=== PATIENT | female | born 1980 | race Caucasian/White ===

== ENCOUNTER 2018-02-27 19:30 | Day surgery (SDC) | payer OTHER ==
--- NOTE | 2018-02-27 19:37 | PDOC ---
Rapid Medical Evaluation Time Seen by Provider: 02/27/18 19:34 Medical Evaluation: Allergies Allergy/AdvReac Type Severity Reaction Status Date / Time No Known Allergies Allergy Verified 08/14/14 16:07 02/27/18 19:34 I have performed a brief in-person evaluation of this patient. The patient presents with a chief complaint of: abd pain since this afternoon, + nausea, no vomiting Pertinent physical exam findings:+RUQ tenderness I have ordered the following:labs, UA The patient will proceed to the ED for further evaluation. 02/27/18 19:36 Discharge Disposition - Diagnosis Abdominal pain Qualifiers: Abdominal location: upper abdomen, unspecified Qualified Code(s): R10.10 - Upper abdominal pain, unspecified - Referrals Referrals: Tonya Zeng MD [Primary Care Provider] - - Patient Instructions - Post Discharge Activity
[2018-02-27 19:44] VITALS: BMI 31.9
[2018-02-27] MEDS ORDERED: SODIUM CHLORIDE 1,000 ML IV STA (21:40)
[2018-02-27] MEDS ORDERED: ONDANSETRON *ODT* 4 MG TABLET SL ONE (21:46)
[2018-02-27] MEDS: ONDANSETRON 4 MG/2 ML VIAL IVPUSH STA ×2 (21:46→22:20)
[2018-02-27] MEDS ORDERED: ONDANSETRON 8 MG TABLET (FP) PO ONE (21:48)
[2018-02-27 22:21] LABS: HEMATOCRIT 37.6 % (32.4-45.2); HEMOGLOBIN 12.7 GM/dL (10.7-15.3); MCHC 33.8 g/dl (32.0-36.0); MEAN CELL VOLUME 91.9 fl (80-96); PLATELET COUNT 281 K/MM3 (134-434); RBC 4.09 M/mm3 (3.60-5.2); WHITE BLOOD COUNT 8.4 K/mm3 (4.0-10.0)
[2018-02-27 22:37] LABS: URINE APPEARANCE CLEAR; URINE BILIRUBIN NEGATIVE (<2.0 mg/dL); URINE COLOR YELLOW; URINE GLUCOSE (UA) NEGATIVE (NEGATIVE); URINE KETONE NEGATIVE (NEGATIVE); URINE LEUK ESTERASE NEGATIVE (NEGATIVE); URINE NITRITE NEGATIVE (NEGATIVE); URINE PROTEIN NEGATIVE (NEGATIVE); URINE UROBILINOGEN 4.0 E.U/dl mg/dL (0.2-1.0)
--- NOTE | 2018-02-27 23:46 | PDOC ---
History of Present Illness - General History Source: Patient Exam Limitations: No Limitations - History of Present Illness Initial Comments: 02/27/18 23:47 The patient is a 37 year old female, with no significant past medical history, who presents to the emergency department with abdominal pain, nausea, and vomiting today. She states she developed lower abdominal pain around 5PM which felt like gas and traveled upwards to her epigastric and right upper abdominal regions. She states she developed some nausea and reports one episode of nonbloody emesis while in the ED waiting room. The patient denies chest pain, shortness of breath, headache and dizziness. The patient denies fever, chills, nausea, vomit, diarrhea and constipation. The patient denies dysuria, frequency, urgency and hematuria. Allergies: NKDA Past surgical history: gastric sleeve (5 years ago @ [facility]), x2 (10 & 7 years ago) Social history: denies toxic habits PCP - Dr. Zeng <Kesha Ribeiro - Last Filed: 02/27/18 23:47> <Viviane Corrigan - Last Filed: 02/28/18 02:38> - General Chief Complaint: Pain Stated Complaint: ABD PAIN Time Seen by Provider: 02/27/18 19:34 Past History <Kesha Ribeiro - Last Filed: 02/27/18 23:47> - Past Medical History COPD: No DVT: No Other medical history: GERD - Surgical History GI Surgery: Yes (GASTRIC SLEEVE) - Immunization History Immunization Up to Date: Yes - Suicide/Smoking/Psychosocial Hx Smoking History: Never smoked Hx Alcohol Use: No Drug/Substance Use Hx: No Substance Use Type: None <Viviane Corrigan - Last Filed: 02/28/18 02:38> - Past Medical History Allergies/Adverse Reactions: Allergies Allergy/AdvReac Type Severity Reaction Status Date / Time No Known Allergies Allergy Verified 02/27/18 19:36 Home Medications: Ambulatory Orders Albuterol Sulfate Inhaler - [Ventolin HFA Inhaler -] 1 - 2 inh PO Q4H #1 inhaler 08/14/14 Ondansetron [Zofran Odt -] 4 mg SL TID PRN #21 od.tablet 02/28/18 Review of Systems - Review of Systems Able to Perform ROS?: Yes Comments:: 02/27/18 23:47 CONSTITUTIONAL: Absent: fever, chills, fatigue EYES: Absent: visual changes ENT: Absent: ear pain, sore throat CARDIOVASCULAR: Absent: chest pain, palpitations RESPIRATORY: Absent: cough, SOB GI: (+) abdominal pain, nausea, vomiting, Absent: constipation, diarrhea GENITOURINARY: Absent: dysuria, frequency, hematuria MUSCULOSKELETAL: Absent: back pain, arthralgia, myalgia SKIN: Absent: rash NEURO: Absent: headache <Kesha Ribeiro - Last Filed: 02/27/18 23:47> *Physical Exam - Vital Signs Last Vital Signs Temp Pulse Resp BP Pulse Ox 98.3 F 94 H 16 135/70 100 02/27/18 19:37 02/27/18 19:37 02/27/18 19:37 02/27/18 19:37 02/27/18 19:37 - Physical Exam Comments: 02/27/18 23:47 GENERAL: Well-appearing, well-nourished. No apparent distress. HEENT: Normocephalic, atraumatic. PERRL, EOM intact. CARDIOVASCULAR: Normal S1, S2. Regular rate and rhythm. PULMONARY: Clear to auscultation bilaterally. ABDOMEN: Soft, non-distended, non-tender. EXTREMITIES: Normal ROM in all four extremities. No gross deformities. SKIN: Warm, dry. No rash NEUROLOGICAL: No focal neurological deficits. <Kesha Ribeiro - Last Filed: 02/27/18 23:47> - Vital Signs Last Vital Signs Temp Pulse Resp BP Pulse Ox 98.3 F 94 H 16 135/70 100 02/27/18 19:37 02/27/18 19:37 02/27/18 19:37 02/27/18 19:37 02/27/18 19:37 <Viviane Corrigan - Last Filed: 02/28/18 02:38> ED Treatment Course - LABORATORY CBC & Chemistry Diagram: 02/27/18 22:05 02/27/18 22:05 - ADDITIONAL ORDERS Additional order review: Laboratory Results 02/27/18 02/27/18 02/27/18 22:21 22:21 22:05 Sodium Potassium Chloride Carbon Dioxide Anion Gap BUN Creatinine Creat Clearance w eGFR Random Glucose Calcium Total Bilirubin AST ALT Alkaline Phosphatase Total Protein Albumin Lipase Serum , Qual Cancelled Urine Color Yellow Urine Appearance Clear Urine pH 7.0 Ur Specific [place] 1.014 Urine Protein Negative Urine Glucose (UA) Negative Urine Ketones Negative Urine Blood Negative Urine Nitrite Negative Urine Bilirubin Negative Urine Urobilinogen 4.0 e.u/dl H Ur Leukocyte Esterase Negative Urine HCG, Qual Negative 02/27/18 02/27/18 22:05 22:05 Sodium Cancelled Potassium Cancelled Chloride Cancelled Carbon Dioxide Cancelled Anion Gap Cancelled BUN Cancelled Creatinine Cancelled Creat Clearance w eGFR Cancelled Random Glucose Cancelled Calcium Cancelled Total Bilirubin Cancelled AST Cancelled ALT Cancelled Alkaline Phosphatase Cancelled Total Protein Cancelled Albumin Cancelled Lipase Cancelled Serum , Qual Urine Color Urine Appearance Urine pH Ur Specific [place] Urine Protein Urine Glucose (UA) Urine Ketones Urine Blood Urine Nitrite Urine Bilirubin Urine Urobilinogen Ur Leukocyte Esterase Urine HCG, Qual 02/27/18 22:05 RBC 4.09 MCV 91.9 MCHC 33.8 RDW 13.0 MPV 8.0 - Medications Given in the ED: ED Medications Discontinued Medications Generic Name Dose Route Start Last Admin Trade Name Freq PRN Reason Stop Dose Admin Sodium Chloride 1,000 mls @ 1,000 mls/hr 02/27/18 21:40 02/27/18 22:19 Normal Saline - IV 02/27/18 22:39 1,000 mls/hr ASDIR STA Administration Ondansetron HCl 4 mg 02/27/18 21:40 02/27/18 22:20 Zofran Injection IVPUSH 02/27/18 21:41 Not Given ONCE STA Ondansetron HCl 8 mg 02/27/18 21:46 02/27/18 22:20 Zofran Odt - SL 02/27/18 21:47 8 mg ONCE ONE Administration <Kesha Ribeiro - Last Filed: 02/27/18 23:47> - LABORATORY CBC & Chemistry Diagram: 02/27/18 22:05 02/27/18 23:45 - ADDITIONAL ORDERS Additional order review: Laboratory Results 02/27/18 02/27/18 02/27/18 22:21 22:21 22:05 Sodium Potassium Chloride Carbon Dioxide Anion Gap BUN Creatinine Creat Clearance w eGFR Random Glucose Calcium Total Bilirubin AST ALT Alkaline Phosphatase Total Protein Albumin Lipase Serum , Qual Cancelled Urine Color Yellow Urine Appearance Clear Urine pH 7.0 Ur Specific [place] 1.014 Urine Protein Negative Urine Glucose (UA) Negative Urine Ketones Negative Urine Blood Negative Urine Nitrite Negative Urine Bilirubin Negative Urine Urobilinogen 4.0 e.u/dl H Ur Leukocyte Esterase Negative Urine HCG, Qual Negative 02/27/18 02/27/18 22:05 22:05 Sodium Cancelled Potassium Cancelled Chloride Cancelled Carbon Dioxide Cancelled Anion Gap Cancelled BUN Cancelled Creatinine Cancelled Creat Clearance w eGFR Cancelled Random Glucose Cancelled Calcium Cancelled Total Bilirubin Cancelled AST Cancelled ALT Cancelled Alkaline Phosphatase Cancelled Total Protein Cancelled Albumin Cancelled Lipase Cancelled Serum , Qual Urine Color Urine Appearance Urine pH Ur Specific [place] Urine Protein Urine Glucose (UA) Urine Ketones Urine Blood Urine Nitrite Urine Bilirubin Urine Urobilinogen Ur Leukocyte Esterase Urine HCG, Qual 02/27/18 22:05 RBC 4.09 MCV 91.9 MCHC 33.8 RDW 13.0 MPV 8.0 - Medications Given in the ED: ED Medications Discontinued Medications Generic Name Dose Route Start Last Admin Trade Name Kel PRN Reason Stop Dose Admin Sodium Chloride 1,000 mls @ 1,000 mls/hr 02/27/18 21:40 02/27/18 22:19 Normal Saline - IV 02/27/18 22:39 1,000 mls/hr ASDIR STA Administration Ondansetron HCl 4 mg 02/27/18 21:40 02/27/18 22:20 Zofran Injection IVPUSH 02/27/18 21:41 Not Given ONCE STA Ondansetron HCl 8 mg 02/27/18 21:46 02/27/18 22:20 Zofran Odt - SL 02/27/18 21:47 8 mg ONCE ONE Administration <Viviane Corrigan - Last Filed: 02/28/18 02:38> Medical Decision Making - Medical Decision Making 02/28/18 01:24 pt dev epigastric pain since 5 pm today with some nausea no fever,no vomiting labs reviewed ,elevated ast,asl and abs US done 02/28/18 02:05 GB US shows gallstones and some GB wall thickening, ? chronic cholecystitis 02/28/18 02:30 Discussed w this pt the options of being admitted today for surgery but she would like to see a surgeon as an outpatient 02/28/18 02:37 I went to discharge this pt and she now wants to have her gallbladder removed <Viviane Corrigan - Last Filed: 02/28/18 02:38> *DC/Admit/Observation/Transfer - Attestations Scribe Attestion: 02/27/18 23:47 Documentation prepared by Kesha Ribeiro, acting as medical sales associate for Viviane Corrigan MD <Kesha Ribeiro - Last Filed: 02/27/18 23:47> <Viviane Corrigan - Last Filed: 02/28/18 02:38> Diagnosis at time of Disposition: Cholecystitis Abdominal pain Qualifiers: Abdominal location: upper abdomen, unspecified Qualified Code(s): R10.10 - Upper abdominal pain, unspecified - Discharge Dispostion Disposition: HOME Condition at time of disposition: Stable - Prescriptions Prescriptions: Ondansetron [Zofran Odt -] 4 mg SL TID PRN #21 od.tablet PRN Reason: Nausea And/Or Vomiting - Referrals Referrals: Tonya Zeng MD [Primary Care Provider] - Ted Castillo MD [Staff Physician] - Jarred Khan MD [Staff Physician] - Dorina Live MD [Staff Physician] - - Patient Instructions Printed Discharge Instructions: DI for Gallstones, DI for Cholecystitis Additional Instructions: please see your doctor this week or call one of the surgeons you have been referred to for further treatment of your gallbladder If you develop worsening symptoms such as fever,vomiting or worsening pain, return to the ER - Post Discharge Activity
[2018-02-28 00:44] LABS: ALBUMIN 3.4 g/dl (3.4-5.0); ALK PHOS 64 U/L (45-117); ANION GAP 6 MMOL/L (8-16); BILIRUBIN,TOTAL 0.7 mg/dL (0.2-1.0); BLOOD UREA NITROGEN 8 mg/dL (7-18); CALCIUM 8.5 mg/dL (8.5-10.1); CHLORIDE 109 mmol/L (98-107); CO2 28 mmol/L (21-32); CREATININE 0.5 mg/dL (0.55-1.02); GLUCOSE,RANDOM 112 mg/dL (74-106); POTASSIUM 4.2 mmol/L (3.5-5.1); SGOT/AST 167 U/L (15-37); SGPT/ALT 119 U/L (12-78); SODIUM 143 mmol/L (136-145); TOT PROT 6.7 g/dl (6.4-8.2)
--- NOTE | 2018-02-28 02:38 | PDOC ---
*Physical Exam - Vital Signs Last Vital Signs Temp Pulse Resp BP Pulse Ox 98.3 F 94 H 16 135/70 100 02/27/18 19:37 02/27/18 19:37 02/27/18 19:37 02/27/18 19:37 02/27/18 19:37 ED Treatment Course - LABORATORY CBC & Chemistry Diagram: 02/27/18 22:05 02/27/18 23:45 - ADDITIONAL ORDERS Additional order review: Laboratory Results 02/27/18 02/27/18 02/27/18 23:45 22:21 22:21 Sodium 143 Potassium 4.2 Chloride 109 H Carbon Dioxide 28 Anion Gap 6 L BUN 8 Creatinine 0.5 L Creat Clearance w eGFR > 60 Random Glucose 112 H Calcium 8.5 Total Bilirubin 0.7 AST 167 H ALT 119 H Alkaline Phosphatase 64 Total Protein 6.7 Albumin 3.4 Lipase Serum , Qual Urine Color Yellow Urine Appearance Clear Urine pH 7.0 Ur Specific [place] 1.014 Urine Protein Negative Urine Glucose (UA) Negative Urine Ketones Negative Urine Blood Negative Urine Nitrite Negative Urine Bilirubin Negative Urine Urobilinogen 4.0 e.u/dl H Ur Leukocyte Esterase Negative Urine HCG, Qual Negative 02/27/18 02/27/18 02/27/18 22:05 22:05 22:05 Sodium Cancelled Potassium Cancelled Chloride Cancelled Carbon Dioxide Cancelled Anion Gap Cancelled BUN Cancelled Creatinine Cancelled Creat Clearance w eGFR Cancelled Random Glucose Cancelled Calcium Cancelled Total Bilirubin Cancelled AST Cancelled ALT Cancelled Alkaline Phosphatase Cancelled Total Protein Cancelled Albumin Cancelled Lipase Cancelled Serum , Qual Cancelled Urine Color Urine Appearance Urine pH Ur Specific [place] Urine Protein Urine Glucose (UA) Urine Ketones Urine Blood Urine Nitrite Urine Bilirubin Urine Urobilinogen Ur Leukocyte Esterase Urine HCG, Qual 02/27/18 22:05 RBC 4.09 MCV 91.9 MCHC 33.8 RDW 13.0 MPV 8.0 - Medications Given in the ED: ED Medications Discontinued Medications Generic Name Dose Route Start Last Admin Trade Name Freq PRN Reason Stop Dose Admin Sodium Chloride 1,000 mls @ 1,000 mls/hr 02/27/18 21:40 02/27/18 22:19 Normal Saline - IV 02/27/18 22:39 1,000 mls/hr ASDIR STA Administration Ondansetron HCl 4 mg 02/27/18 21:40 02/27/18 22:20 Zofran Injection IVPUSH 02/27/18 21:41 Not Given ONCE STA Ondansetron HCl 8 mg 02/27/18 21:46 02/27/18 22:20 Zofran Odt - SL 02/27/18 21:47 8 mg ONCE ONE Administration Medical Decision Making - Medical Decision Making 02/28/18 02:36 The patient was signed out to me by Dr. Corrigan. The patient is a 37F with a PMH of gastric sleeve 10 years ago who presents with RUQ pain. U/S reveals mobile gallstones w/ thickened gallbladder wall w/o pericholecystic fluid. Pt has elevated AST and ALT. Will admit to Dr. Castillo. 02/28/18 07:09 I have d/w Dr. Castillo who wants additional labs. Previous lipase cancelled for unknown reasons, will reorder and will order T+S and coags. *DC/Admit/Observation/Transfer Diagnosis at time of Disposition: Cholecystitis Abdominal pain Qualifiers: Abdominal location: upper abdomen, unspecified Qualified Code(s): R10.10 - Upper abdominal pain, unspecified - Discharge Dispostion Condition at time of disposition: Guarded Decision to Admit order: Yes - Prescriptions - Referrals - Patient Instructions - Post Discharge Activity
[2018-02-28] MEDS ORDERED: SODIUM CHLORIDE 0.9% 1000 ML INFUS.BAG IV ONE (03:20)
[2018-02-28] MEDS ORDERED: ceFAZolin 2 GRAM PREMIX BAG IVPB ONE (03:30)
[2018-02-28] MEDS: LACTATED RINGERS SOLUTION 1,000 ML/1,000 ML INFUS.BAG IV SCH ×2 (06:03→12:48)
[2018-02-28] MEDS ORDERED: ceFAZolin SODIUM 1 GM VIAL ONE (06:12)
[2018-02-28] MEDS ORDERED: CEFOXITIN SODIUM 2 GM in DEXTROSE 5%-WATER - 100 ML IVPB ONE (09:42)
[2018-02-28] MEDS ORDERED: ACETAMINOPHEN 1000 MG/100 ML VIAL (NON FORMULARY) IVPB PRN (09:44)
[2018-02-28] MEDS ORDERED: ALBUTEROL SO4 8 GM HFA INHALER IH PRN (09:45)
[2018-02-28 10:45] LABS: BASO % 0.2 % (0-2.0); EOS % 0.4 % (0-4.5); HEMATOCRIT 32.7 % (32.4-45.2); HEMOGLOBIN 11.2 GM/dL (10.7-15.3); LYMPH % 29.6 % (8-40); MCH 31.4 pg (25.7-33.7); MCHC 34.1 g/dl (32.0-36.0); MEAN CELL VOLUME 91.9 fl (80-96); MEAN PLT VOLUME 7.9 fl (7.5-11.1); MONO % 6.9 % (3.8-10.2); NEUT % 62.9 % (42.8-82.8); PLATELET COUNT 263 K/MM3 (134-434); RBC 3.56 M/mm3 (3.60-5.2); RDW 13.2 % (11.6-15.6); WHITE BLOOD COUNT 3.9 K/mm3 (4.0-10.0)
[2018-02-28 10:55] LABS: ALBUMIN 3.1 g/dl (3.4-5.0); ANION GAP 3 MMOL/L (8-16); BLOOD UREA NITROGEN 6 mg/dL (7-18); CALCIUM 8.7 mg/dL (8.5-10.1); CHLORIDE 110 mmol/L (98-107); CO2 30 mmol/L (21-32); CREATININE 0.6 mg/dL (0.55-1.02); GLUCOSE,RANDOM 74 mg/dL (74-106); LIPASE 113 U/L (73-393); POTASSIUM 4.5 mmol/L (3.5-5.1); SGOT/AST 165 U/L (15-37); SODIUM 143 mmol/L (136-145); TOT PROT 6.3 g/dl (6.4-8.2)
[2018-02-28 10:56] LABS: INR 1.03 (0.83-1.09); PROTHROMBIN TIME (PATIENT) 11.6 SEC (9.7-13.0)
[2018-02-28 10:57] LABS: ALK PHOS 68 U/L (45-117); BILIRUBIN,TOTAL 0.4 mg/dL (0.2-1.0); SGPT/ALT 167 U/L (12-78)
--- NOTE | 2018-02-28 18:22 | HP ---
Admitting History and Physical - Primary Care Physician PCP: Tonya Zeng - Admission Chief Complaint: epigastric pain, n/v History of Present Illness: 37yo F with h/o GERD, morbid obesity s/p lap gastric sleeve 5 yrs ago with 50 lb weight loss, presented to ER with epigastric pain radiating up middle of chest and across neck starting ~5:30pm last night. She had grilled cheese and coffee for meal before that, and has had similar symptoms in past ( sometimes after greasy foods), but had never sought medical attention before for it. She had subjective chills and nausea associated, but did not vomit until she got to ER last night. In ER, she was afebrile, with normal wbc, normal labs except mildly elevated AST/ALT, and US showed contracted gallbladder with multiple stones, no signs cholecystitis. She was going to be discharged home, but decided she wanted to stay and have her gallbladder out. Labs repeated this am are stable, with no suggestion of CBD stones or pancreatitis. She is seen and examined in her bed with family member present. She states her pain is much better, and she is hungry. History Source: Patient Limitations to Obtaining History: No Limitations - Past Medical History Gastrointestinal: Yes: GERD Reproductive: No: Postmenopausal ...LMP Comment: 2 wks ago ...: No ...Para: 2 (7 & 10 yo) Additional Past Medical History: morbid obesity (lost ~50 lbs) - Past Surgical History Past Surgical History: Yes: Bariatric Surgery (laparoscopic gastric sleeve 5 yrs ago in [place]), (x2) - Smoking History Smoking history: Never smoked - Alcohol/Substance Use Hx Alcohol Use: Yes (rarely) History of Substance Use: reports: None - Social History ADL: Independent Home Medications - Allergies Allergies/Adverse Reactions: Allergies Allergy/AdvReac Type Severity Reaction Status Date / Time No Known Allergies Allergy Verified 02/27/18 19:36 - Home Medications Home Medications: Ambulatory Orders Omeprazole 20 mg PO DAILY PRN 02/28/18 Family Disease History - Family Disease History Family Disease History: Other: Sister (gallbladder problems) Review of Systems - Review of Systems Constitutional: reports: Chills (yesterday), Diaphoresis (last evening). denies : Fever Eyes: denies: Blurred Vision, Recent Change in Vision HENT: denies: Difficult Swallowing, Throat Pain Neck: denies: Swollen Glands, Tenderness Cardiovascular: denies: Chest Pain, Palpitations Respiratory: denies: Cough, SOB Gastrointestinal: reports: Abdominal Pain (with hpi), Constipation, Nausea ( with hpi), Vomiting (in ER only). denies: Diarrhea Genitourinary: denies: Burning, Dysuria Musculoskeletal: reports: Back Pain, Joint Pain (right knee). denies: Muscle Pain Integumentary: denies: Change in Color, Rash Neurological: reports: Dizziness, Headache Hematology/Lymphatic: reports: Easily Bruised. denies: Excessive Bleeding Psychiatric: reports: Anxiety (not for a long time). denies: Depression Physical Examination Vital Signs: Vital Signs Temperature 98.7 F 02/28/18 16:27 Pulse Rate 58 L 02/28/18 16:27 Respiratory Rate 20 02/28/18 16:27 Blood Pressure 114/68 02/28/18 16:27 O2 Sat by Pulse Oximetry (%) 100 02/27/18 22:30 Constitutional: Yes: Well Nourished, No Distress, Calm Eyes: Yes: Conjunctiva Clear, EOM Intact. No: Sclera Icterus HENT: Yes: Atraumatic, Normocephalic Neck: Yes: Supple, Trachea Midline Cardiovascular: Yes: Regular Rate and Rhythm. No: Murmur Respiratory: Yes: Regular, CTA Bilaterally Gastrointestinal: Yes: Normal Bowel Sounds, Soft, Other (well-healed laparoscopic and Pfannenstiel scars). No: Distention, Hernia, Tenderness (much better than last night per pt) ...Rectal Exam: Yes: Deferred Renal/: No: CVA Tenderness - Left, CVA Tenderness - Right Musculoskeletal: No: Joint Stiffness, Joint Swelling Extremities: No: Cool, Cyanosis Edema: No Peripheral Pulses WNL: Yes Integumentary: No: Jaundice, Rash Neurological: Yes: Alert, Oriented Psychiatric: Yes: Alert, Oriented Labs: CBC, BMP 02/28/18 10:10 02/28/18 10:10 CMP Sodium 143 mmol/L (136-145) 02/28/18 10:10 Potassium 4.5 mmol/L (3.5-5.1) 02/28/18 10:10 Chloride 110 mmol/L (98-107) H 02/28/18 10:10 Carbon Dioxide 30 mmol/L (21-32) 02/28/18 10:10 Anion Gap 3 MMOL/L (8-16) L 02/28/18 10:10 BUN 6 mg/dL (7-18) L 02/28/18 10:10 Creatinine 0.6 mg/dL (0.55-1.02) 02/28/18 10:10 Creat Clearance w eGFR > 60 (>60) 02/28/18 10:10 Random Glucose 74 mg/dL (74-106) 02/28/18 10:10 Calcium 8.7 mg/dL (8.5-10.1) 02/28/18 10:10 Total Bilirubin 0.4 mg/dL (0.2-1.0) 02/28/18 10:10 AST 165 U/L (15-37) H 02/28/18 10:10 ALT 167 U/L (12-78) H 02/28/18 10:10 Alkaline Phosphatase 68 U/L (45-117) 02/28/18 10:10 Total Protein 6.3 g/dl (6.4-8.2) L 02/28/18 10:10 Albumin 3.1 g/dl (3.4-5.0) L 02/28/18 10:10 Lipase 113 U/L (73-393) 02/28/18 10:10 Serum , Qual Negative 02/28/18 10:10 INR, PTT INR 1.03 (0.83-1.09) 02/28/18 10:10 Urine Test Results Urine Color Yellow 02/27/18 22:21 Urine Appearance Clear 02/27/18 22:21 Urine pH 7.0 (5.0-8.0) 02/27/18 22:21 Ur Specific [place] 1.014 (1.001-1.035) 02/27/18 22:21 Urine Protein Negative (NEGATIVE) 02/27/18 22:21 Urine Glucose (UA) Negative (NEGATIVE) 02/27/18 22:21 Urine Ketones Negative (NEGATIVE) 02/27/18 22:21 Urine Blood Negative (NEGATIVE) 02/27/18 22:21 Urine Nitrite Negative (NEGATIVE) 02/27/18 22:21 Urine Bilirubin Negative (<2.0 mg/dL) 02/27/18 22:21 Ur Leukocyte Esterase Negative (NEGATIVE) 02/27/18 22:21 AST/ALT both mildly elevated, stable bili, Alk Phos, lipase normal wbc normal Imaging - Results Ultrasound: Report Reviewed, Image Reviewed (images personally reviewed - multiple stones, gallbladder not distended, no ductal dilation, no fluid) Problem List - Problems (1) Calculus of gallbladder without cholecystitis without obstruction Assessment/Plan: biliary colic without cholecystitis admit 23H/satellite to surgery NPO/IVF until postop pain meds prn - nonnarcotics first line GI/DVT prophylaxis trended labs this am - stable Discussed with patient risks, benefits and alternatives of laparoscopic possible open cholecystectomy, including but not limited to bleeding, infection , injury to adjacent structures, bile leak or ductal injury, intraabdominal abscess, incisional hernia, need for further procedures; alternatives include delayed or no surgery - risks of this include recurrence of biliary colic, cholecystitis, cholangitis, pancreatitis, sepsis. Patient desires to proceed with operation - will take to OR for above. Informed consent signed for same. periop antibiotics anticipate resuming po postop Code(s): K80.20 - CALCULUS OF GALLBLADDER W/O CHOLECYSTITIS W/O OBSTRUCTION (2) Epigastric abdominal pain Assessment/Plan: resolved Code(s): R10.13 - EPIGASTRIC PAIN (3) Obesity due to excess calories without serious comorbidity Assessment/Plan: lost weight after bariatric surgery Code(s): E66.09 - OTHER OBESITY DUE TO EXCESS CALORIES Qualifiers: Obesity classification: adult class 1 (BMI 30 - 34.9) Body mass index: BMI 31.0-31.9 Qualified Code(s): E66.09 - Other obesity due to excess calories; Z68.31 - Body mass index (BMI) 31.0-31.9, adult (4) Nausea & vomiting Assessment/Plan: only in ER - resolved Code(s): R11.2 - NAUSEA WITH VOMITING, UNSPECIFIED Qualifiers: Vomiting type: unspecified Vomiting Intractability: non-intractable Qualified Code(s): R11.2 - Nausea with vomiting, unspecified
[2018-02-28] MEDS ORDERED: ONDANSETRON 4 MG/2 ML VIAL IVPUSH PRN ×2 (18:39→21:36)
[2018-02-28] MEDS ORDERED: BENZOIN/ALOE VERA/STORAX/TOLU 58 ML BOTTLE ONE (18:40)
[2018-02-28] MEDS ORDERED: MIDAZOLAM HCL 2 MG/2 ML SINGLE DOSE VIAL ONE (18:58)
[2018-02-28] MEDS ORDERED: PROPOFOL 20 ML ONE (19:06)
[2018-02-28] MEDS ORDERED: ROCURONIUM BROMIDE 50 MG/5 ML VIAL ONE (19:07)
[2018-02-28] MEDS ORDERED: SUCCINYLCHOLINE CHLORIDE 200 MG/10 ML VIAL ONE (19:07)
[2018-02-28] MEDS ORDERED: CEFOXITIN SODIUM 2 GM IVPB ONE (19:22)
[2018-02-28] MEDS ORDERED: cefOXitin SODIUM 1 GM VIAL (RESTRICTED TO ID) IVPB ONE (19:33)
[2018-02-28] MEDS ORDERED: DEXAMETHASONE SOD PHOSPHATE 4 MG/1 ML VIAL ONE (19:59)
[2018-02-28] MEDS ORDERED: BUPIVACAINE HCL/PF (5 MG/ML) 30 ML VIAL IJ ONE (20:30)
[2018-02-28] MEDS ORDERED: ACETAMINOPHEN 325 MG TABLET (FP) PO SCH (21:00)
[2018-02-28] MEDS ORDERED: LORazepam 2 MG/ML SDV VIAL IVPUSH PRN (21:10)
--- NOTE | 2018-02-28 21:11 | OP ---
Operative Note - Note: Operative Date: 02/28/18 Pre-Operative Diagnosis: symptomatic cholelithiasis Operation: laparoscopic cholecystectomy Findings: multiple stones in gb, mild edema at liver interface; critical view identified Post-Operative Diagnosis: Same as Pre-op Surgeon: Ted Castillo Auxiliary Operator: Jarred Khan Anesthesiologist/[employer] SALES ACCOUNT MANAGER: Glenys Nguyen Specimens Removed: gallbladder to pathology Estimated Blood Loss (mls): 5 Fluid Volume Replaced (mls): 1,200 (crystalloid) Operative Report Dictated: Yes
[2018-02-28] MEDS ORDERED: oxyCODONE HCL 5 MG TABLET PO PRN ×2 (21:15→21:36)
[2018-02-28] MEDS ORDERED: LORazepam 2 MG/ML SDV VIAL ONE (21:21)
[2018-02-28] MEDS ORDERED: ACETAMINOPHEN INJECTION 100 ML IVPB ONE (21:21)
[2018-02-28] MEDS ORDERED: PANTOPRAZOLE 20 MG TABLET (FP) PO PRN (21:24)
[2018-02-28] MEDS ORDERED: ACETAMINOPHEN 1000 MG/100 ML VIAL (NON FORMULARY) IVPB ONE (21:30)
[2018-02-28] MEDS ORDERED: LACTATED RINGERS SOLUTION 1,000 ML/1,000 ML INFUS.BAG IV SCH (21:36)
[2018-02-28] MEDS ORDERED: DOCUSATE SODIUM 100 MG CAPSULE (FP) PO SCH (22:00)
[2018-02-28] MEDS: IBUPROFEN 600 MG TABLET (FP) PO SCH (23:20)
[2018-02-28] MEDS: DOCUSATE SODIUM 100 MG CAPSULE (FP) PO SCH (23:30)
[2018-03-01] MEDS ORDERED: IBUPROFEN 600 MG TABLET (FP) PO SCH
[2018-03-01] MEDS: ACETAMINOPHEN 325 MG TABLET (FP) PO SCH ×3 (02:54→16:20)
[2018-03-01] MEDS ORDERED: CEFOXITIN SODIUM 2 GM in DEXTROSE 5%-WATER - 100 ML IVPB ONE (03:00)
[2018-03-01] MEDS: IBUPROFEN 600 MG TABLET (FP) PO SCH ×4 (05:42→17:40)
[2018-03-01] MEDS: DOCUSATE SODIUM 100 MG CAPSULE (FP) PO SCH (09:46)
--- NOTE | 2018-03-01 13:09 | PN ---
Progress Note (short form) - Note Progress Note: Anesthesia POD#1 S/PLap Cholecystectomty under GA VSS,O2 for breathing,nausea settled down. Some difficulty in breathing and a lot of phlem. Workup is being done. Pain is under control. Christen Johnson MD.
--- NOTE | 2018-03-01 13:09 | CONSULT ---
Consult Consult Specialty:: internal medcine - History of Present Illness Chief Complaint: epigsatric pain History of Present Illness: 37 yr old female with H/O GERD and morbid obesity s/p gastric sleeve admitted for epigastric pain , ultrasound showed cholelithiasis s/p lap cholecystectomy now medicine consulted for chest pain and bradycardia per patient she is having right sided upper chest pain and radiating to her neck and worse with inspiration noticed to be bradycardic on EKG - History Source History Provided By: Patient - Past Medical History Gastrointestinal: Yes: GERD ...LMP Comment: 2 wks ago ...: No - Past Surgical History Past Surgical History: Yes: Bariatric Surgery (laparoscopic gastric sleeve 5 yrs ago in [place]), (x2) - Alcohol/Substance Use Hx Alcohol Use: Yes (rarely) History of Substance Use: reports: None - Smoking History Smoking history: Never smoked - Social History ADL: Independent Home Medications - Allergies Allergies/Adverse Reactions: Allergies Allergy/AdvReac Type Severity Reaction Status Date / Time No Known Allergies Allergy Verified 02/27/18 19:36 - Home Medications Home Medications: Ambulatory Orders Omeprazole 20 mg PO DAILY PRN 02/28/18 Family Disease History - Family Disease History Family Disease History: Other: Sister (gallbladder problems) Review of Systems - Review of Systems Cardiovascular: reports: Chest Pain, Other (intermittent chest pain) Physical Exam Vital Signs: Vital Signs Temperature 98.4 F 03/01/18 06:00 Pulse Rate 78 03/01/18 06:00 Respiratory Rate 20 03/01/18 06:00 Blood Pressure 107/5 03/01/18 06:00 O2 Sat by Pulse Oximetry (%) 100 02/28/18 23:17 Constitutional: Yes: Calm Cardiovascular: Yes: Regular Rate and Rhythm, S1, S2, Other (point tenderness upper right side of chest) Respiratory: Yes: CTA Bilaterally Gastrointestinal: Yes: Soft, Other (three bandages upper abdomen) Edema: No Neurological: Yes: Alert, Oriented Labs: CBC, BMP 02/28/18 10:10 02/28/18 10:10 Imaging - Results EKG: Report Reviewed (sinus bradycardia) Problem List - Problems (1) Chest pain Assessment/Plan: atypical- chest pain CE now echo cardiology consult motrin Code(s): R07.9 - CHEST PAIN, UNSPECIFIED (2) Calculus of gallbladder without cholecystitis without obstruction Assessment/Plan: s/p lap cholecystectomy' motrin LFT elevated continue to monitor as outpatient- Note: Operative Date: 02/28/18 Pre-Operative Diagnosis: symptomatic cholelithiasis Operation: laparoscopic cholecystectomy Findings: multiple stones in gb, mild edema at liver interface; critical view identified Post-Operative Diagnosis: Same as Pre-op Surgeon: Ted Castillo [employer] Operator: Jarred Khan Anesthesiologist/CERTIFIED COATINGS INSPECTOR: Glenys Nguyen Specimens Removed: gallbladder to pathology Estimated Blood Loss (mls): 5 Fluid Volume Replaced (mls): 1,200 (crystalloid) Operative Report Dictated: Yes Code(s): K80.20 - CALCULUS OF GALLBLADDER W/O CHOLECYSTITIS W/O OBSTRUCTION (3) Bradycardia Assessment/Plan: cardiology consult sinus bradycardia cardiac enzyme- ordered ECHO Code(s): R00.1 - BRADYCARDIA, UNSPECIFIED
--- NOTE | 2018-03-01 13:41 | EKG ---
Test Reason : Blood Pressure : / mmHG Vent. Rate : 051 BPM Atrial Rate : 051 BPM P-R Int : 146 ms QRS Dur : 084 ms QT Int : 428 ms P-R-T Axes : 033 014 008 degrees QTc Int : 394 ms SINUS BRADYCARDIA OTHERWISE NORMAL ECG NO PREVIOUS ECGS AVAILABLE Confirmed by HERB DALE MD ([id number]) on 03/01/2018 1:41:11 PM Referred By: GIORGI JACOBSEN DR Confirmed By:HERB DALE MD
--- NOTE | 2018-03-01 16:24 | CON.CARD ---
Consult Consult Specialty:: Cardiology Referred by:: Dr. Garza Reason for Consultation:: bradycardia chest pain - History of Present Illness Chief Complaint: RUQ pain History of Present Illness: 37 year old woman pmh morbid obesity s/p lap gastric sleeve 5 yrs ago with 50 lb weight loss, admitted with cholangitis epigastric pain, s/p Lap jessica 9/ last night developed R sided chest pain, EKG showed sinus bradycardia. Pt seen and examined today in nad. states that she feels better today. states the pain was R sided, non-radiating, reproducible on palpation. denies palpitations, lightheadedness, dizziness, sob. - History Source History Provided By: Patient, Family Member, Medical Record Limitations to Obtaining History: No Limitations - Past Medical History Gastrointestinal: Yes: GERD ...LMP Comment: 2 wks ago ...: No - Past Surgical History Past Surgical History: Yes: Bariatric Surgery (laparoscopic gastric sleeve 5 yrs ago in [place]), (x2) - Alcohol/Substance Use Hx Alcohol Use: Yes (rarely) History of Substance Use: reports: None - Smoking History Smoking history: Never smoked - Social History ADL: Independent History of Recent Travel: No Home Medications - Allergies Allergies/Adverse Reactions: Allergies Allergy/AdvReac Type Severity Reaction Status Date / Time No Known Allergies Allergy Verified 02/27/18 19:36 - Home Medications Home Medications: Ambulatory Orders Omeprazole 20 mg PO DAILY PRN 02/28/18 Family Disease History - Family Disease History Family Disease History: Other: Sister (gallbladder problems) Review of Systems - Review of Systems Constitutional: denies: No Symptoms, Chills, Diaphoresis, Fever, Lethargy, Loss of Appetite, Malaise, Night Sweats, Unintentional Wgt. Loss, Weakness, Other Eyes: denies: No Symptoms, Blind Spots, Blurred Vision, Double Vision, Eye Pain , Floaters, Photophobia, Recent Change in Vision, Other HENT: denies: No Symptoms, Difficult Swallowing, Ear Discharge, Ear Pain, Epistaxis, Gingival Bleeding, Hearing Loss, Mouth Swelling, Nasal Congestion, Ocular Prosthesis, Throat Pain, Toothache, Ringing in Ears, Other Neck: denies: No Symptoms, Decreased ROM, Lumps, Pain on Movement, Stiffness, Swollen Glands, Tenderness, Other Cardiovascular: reports: Chest Pain. denies: No Symptoms, Edema, Palpitations, Shortness of Breath, Other Respiratory: denies: No Symptoms, Cough, Exercise Intolerance, Hemoptysis, Orthopnea, PND, Snoring, SOB, SOB on Exertion, Wheezing, Other Gastrointestinal: reports: Abdominal Pain. denies: No Symptoms, Bloating, Constipation, Diarrhea, Dysphagia, Indigestion, Melena, Nausea, Rectal Bleeding , Vomiting, Vomiting Blood, Other Genitourinary: denies: No Symptoms, Burning, Discharge, Dysuria, Flank Pain, Frequency, Hematuria, Incontinence, Lesions, Menses, Pain, Testicular Mass, Testicular Pain, Testicular Swelling, Urgency, Vaginal Bleeding, Other Breasts: denies: No Symptoms Reported, See HPI, Breast Implants, Discharge from Nipple, Lumps, Pain, Skin Changes, Other Musculoskeletal: denies: No Symptoms, Back Pain, Crepitus, Decreased ROM, Extremity Pain, Joint Pain, Joint Swelling, Muscle Pain, Muscle Cramps, Muscle Weakness, Other Integumentary: denies: No Symptoms, Blister, Bruising, Change in Color, Eczema, Erythema, Incision, Lesions, Lump, Pallor, Pruritis, Rash, Wound, Other Neurological: denies: No Symptoms, Change in LOC, Change in Speech, Confusion, Dizziness, Headache, Incoordination, Numbness, Parasthesia, Pre-Existing Deficit , Seizure, Syncope, Tremors, Unsteady Gait, Weakness, Other Endocrine: denies: No Symptoms, Excessive Sweating, Flushing, Increased Hunger, Increased Thirst, Intolerance to Cold, Intolerance to Heat, Unexplained Weight Gain, Unexplained Weight Loss, Other Hematology/Lymphatic: denies: No Symptoms, Easily Bruised, Excessive Bleeding, Swollen Glands, Other Psychiatric: denies: No Symptoms, Altered Sleep Pattern, Anxiety, Depression, Hallucinations, Panic, Paranoia, Suicidal, Other Vital Signs: Vital Signs Temperature 98.1 F 03/01/18 14:00 Pulse Rate 52 L 03/01/18 14:00 Respiratory Rate 17 03/01/18 14:00 Blood Pressure 126/73 03/01/18 14:00 O2 Sat by Pulse Oximetry (%) 100 03/01/18 08:00 Constitutional: Yes: Well Nourished, No Distress, Calm Eyes: Yes: WNL, Conjunctiva Clear, EOM Intact HENT: Yes: WNL, Atraumatic, Normocephalic Neck: Yes: WNL, Supple, Trachea Midline Respiratory: Yes: WNL, Regular, CTA Bilaterally. No: Rales, Rhonchi, Wheezes Gastrointestinal: Yes: WNL, Normal Bowel Sounds, Soft, Tenderness. No: Distention Renal/: Yes: WNL Cardiovascular: Yes: WNL, Regular Rate and Rhythm. No: Bradycardia, Tachycardia , Pulse Irregular, Gallop, Rub, Varicosities JVD: No Carotid Bruit: No PMI: Non-Displaced Heart Sounds: Yes: S1, S2. No: Split S2, S3, S4, Clicks, Gallop, Rub, Bruit Murmur: No: Systolic Murmur, Diastolic Murmur Musculoskeletal: Yes: WNL Extremities: Yes: WNL Edema: No Peripheral Pulses WNL: Yes Peripheral Pulses: 2+ Left Doralis Pedis, 2+ Right Dorsalis Pedis Integumentary: Yes: WNL Neurological: Yes: WNL, Alert, Oriented, Cran Nerves II-XII Intact ...Motor Strength: WNL Psychiatric: Yes: WNL, Alert, Oriented - Other Data Labs, Other Data: CBC, BMP 02/28/18 10:10 02/28/18 10:10 INR, PTT INR 1.03 (0.83-1.09) 02/28/18 10:10 ekg-sinus bradycardia 51bpm otherwise normal ecg Echo: Pending Imaging - Results Chest X-ray: Report Reviewed, Image Reviewed EKG: Report Reviewed, Image Reviewed Other: Report Reviewed, Image Reviewed Assessment/Plan 37 year old woman pmh morbid obesity s/p lap gastric sleeve 5 yrs ago with 50 lb weight loss, admitted with cholangitis epigastric pain, s/p Lap jessica 02/28 last night developed R sided chest pain, EKG showed sinus bradycardia. Pt seen and examined today in nad. states that she feels better today. states the pain was R sided, non-radiating, reproducible on palpation. denies palpitations, lightheadedness, dizziness, sob. Chest pain-atypical, r sided, reproducible on palpation -unlikely ACS -ekg shows no ischemia -echo was done today, results pending -if echo wnl then no additional inpatient cardiac work up is needed at this time Bradycardia-mild sinus britany on ekg, asymptomatic -may be related to abd discomfort and surgery as well as pain medication -HR trend goes up to 90s at rest -no additional inpatient cardiac work up is needed at this time If echo is wnl pt can be followed as outpatient for additional work up as needed.
--- NOTE | 2018-03-01 16:57 | ECHO ---
Name: HENRY DAVENPORT Exam:Adult Echocardiogram Study Date: 03/01/2018 02:34 PM Age: 37 yrs Reason For Study: R/O WALL MOTION ABNORMALITY Height: 61 in Weight: 169 lb BSA: 1.8 m2 MMode/2D Measurements & Calculations IVSd: 0.95 cm Ao root diam: 2.4 cm LVIDd: 4.5 cm LA dimension: 3.8 cm LVIDs: 2.8 cm LVPWd: 0.82 cm EDV(Teich): 90.7 ml TAPSE: 2.3 cm ESV(Teich): 30.2 ml RV S Arturo: 12.9 cm/sec Doppler Measurements & Calculations MV E max arturo: 10.8 cm/sec MR max arturo: 340.8 cm/sec MV A max arturo: 15.5 cm/sec MR max P.5 mmHg MV E/A: 0.70 TR max arturo: 221.0 cm/sec TR max P.9 mmHg Procedure A complete two-dimensional transthoracic echocardiogram was performed (2D, M-mode, Doppler and color flow Doppler). Left Ventricle The left ventricular size, thickness and function are normal. The left ventricular ejection fraction is normal. Ejection Fraction = 55-60%. The left ventricular wall motion is normal. Right Ventricle The right ventricle is normal in size and function. Atria Normal left and right atrial size and function. Mitral Valve There is no mitral regurgitation noted. Tricuspid Valve There is mild tricuspid regurgitation. Right ventricular systolic pressure is normal. Aortic Valve No hemodynamically significant valvular aortic stenosis. No aortic regurgitation is present. Pulmonic Valve There is no pulmonic valvular regurgitation. Great Vessels The aortic root is normal size. Pericardium/Pleura There is no pericardial effusion. Interpretation Summary The left ventricular size, thickness and function are normal. The right ventricle is normal in size and function. There is mild tricuspid regurgitation. MD Yang Conde 03/01/2018 04:56 PM
[2018-03-01 17:03] VITALS: BP 120/73; PULSE 65; TEMP 98
--- NOTE | 2018-03-01 19:37 | DS ---
Physical Examination Vital Signs: Vital Signs Temperature 98.0 F 03/01/18 17:02 Pulse Rate 65 03/01/18 17:02 Respiratory Rate 20 03/01/18 17:02 Blood Pressure 120/73 03/01/18 17:02 O2 Sat by Pulse Oximetry (%) 100 03/01/18 08:00 Findings/Remarks: Pt seen and examined in bed with family member at bedside. She has been seen by medicine and cardiology for c/o right-sided chest pain earlier, and bradycardia noted on EKG. Echo was unremarkable. She has ambulated, voided, tolerated diet, and pain is controlled with nonnarcotic po meds. She is feeling better, and has only incisional pain at this time. Ready to go home. Constitutional: Yes: No Distress, Calm, Obese Eyes: Yes: Conjunctiva Clear, EOM Intact. No: Sclera Icterus HENT: Yes: Atraumatic, Normocephalic Cardiovascular: Yes: Regular Rate and Rhythm, Murmur (?soft systolic). No: Bradycardia, Tachycardia Respiratory: Yes: Regular, CTA Bilaterally Gastrointestinal: Yes: Normal Bowel Sounds, Soft, Abdomen, Obese, Tenderness ( mild incisional only). No: Distention Musculoskeletal: No: Joint Stiffness, Joint Swelling Extremities: No: Cool, Cyanosis Integumentary: Yes: Bruising (few small spots of ecchymosis at edges of some incisional dressings), Incision (x4 dressed). No: Jaundice, Rash Wound/Incision: Yes: Steri Strips (under dressings x4), Dressing Dry and Intact (x4 - 2 with dried serosang staining), Dressing Removed (x2 and changed for new ones). No: Draining, Reddened, Bleeding Neurological: Yes: Alert, Oriented Labs: no new labs Discharge Summary Reason For Visit: SYMPTOMATIC CHOLELITHIASIS Current Active Problems Calculus of gallbladder without cholecystitis without obstruction (Acute) Epigastric abdominal pain (Acute) Nausea & vomiting (Acute) Obesity due to excess calories without serious comorbidity (Acute) Bradycardia (Acute) Chest pain (Acute) Procedures: Principal: laparoscopic cholecystectomy Other Procedures: echocardiogram Hospital Course: 37yo obese F s/p laparoscopic gastric sleeve 5 yrs ago presented with epigastric pain associated with n/v, and was tender in RUQ. In ER, labs were normal except for mildly elevated AST/ALT including normal lipase. US showed contracted gallbladder with multiple stones and no signs of cholecystitis. She continued to have pain, and was admitted as satellite patient to surgery for laparoscopic cholecystectomy, which was performed last night. She received perioperative Cefoxitin, IV fluids and pain meds. Postop, she has been ambulating, voiding, tolerating diet, and pain is controlled with po Tylenol and Ibuprofen alternating. This morning, she complained of right upper chest pain, and EKG was done noting sinus bradycardia. She has had heart rates ranging from low 50s to 90s during her stay. Medicine and cardiology were consulted to evaluate, and echocardiogram was also done. Her pain resolved, and echo was unremarkable. Cardiac enzymes were negative. She has been cleared to follow up as an outpatient. Incisional dressings are intact; two were changed prior to discharge. She will f/u with surgery in 2 weeks, and has lifting restrictions with regard to work and home. Time spent on discharge: 40 minutes Condition: Good - Instructions Diet, Activity, Other Instructions: Postoperative instructions: You had a laparoscopic cholecystectomy on 02/28/[address] Ted Castillo of [facility]. Activity: Resume your usual activities gradually, but no heavy exertion or lifting more than 10-15 pounds for 1 month. Remove dressings 48 hours after surgery; sticky tapes underneath will fall off by themselves. You may shower daily starting then, just pat the incision areas dry. No bath or swimming until skin incisions have healed. Eat lightly at first, but advance to your usual diet as tolerated. Pain: For pain, you may use and alternate Tylenol (acetaminophen) 1-2 pills and/ or ibuprofen 200 mg (1-3 pills) every 6 hours each as needed; this means that you can take one OR the other at 3-hour intervals. Do not take more than 4000mg of acetaminophen in a day. Take medications as prescribed or indicated on the labeling. You may continue to use a stool softener as needed for constipation. Follow-up: Call Dr. Castillo's office at [phone] to make your postop appointment (Monday in approximately 2 weeks after surgery). Clinic is held in the [facility] on the first floor of [facility]. Call the office if you have: * increasing pain not responsive to pain medication * fever of 101F or higher * vomiting * unusual or increasing bleeding or drainage from wounds * increasing redness or swelling at wound sites Also, see your primary medical doctor within 1-2 weeks. You were seen by a medical doctor (Dr. Racheal Garza) while in the hospital, as well as a subacute nurse (Dr. Jah Buckner), regarding right-sided chest pain and bradycardia, or slow heartbeat. You may follow up with cardiology as an outpatient, in case further workup is necessary. Your echocardiogram did not show any remarkable abnormalities. Referrals: Ted Castillo MD [Staff Physician] - Racheal Garza MD [Staff Physician] - (You may see Dr. Garza as an outpatient if you choose; she is an internal medicine physician.) Jah Buckner MD [Staff Physician] - (You may see Dr. Buckner, his partner Dr. Mike Keen, or a subacute nurse of your choosing for followup.) Tonya Zeng MD [Primary Care Provider] - Disposition: HOME - Home Medications Comprehensive Discharge Medication List: Ambulatory Orders Omeprazole 20 mg PO DAILY PRN 02/28/18 Acetaminophen [Tylenol .Regular Strength -] 650 mg PO Q6H tablet 03/01/18 Docusate Sodium [Colace -] 100 mg PO BID PRN capsule 03/01/18 Ibuprofen [Motrin -] 600 mg PO Q6H tablet 03/01/18
--- NOTE | 2018-03-02 14:56 | PATH ---
Surgical Pathology Report Patient Name: HENRY DAVENPORT [facility]. Rec. #: [id number] /Age/Gender: 1980 (Age: 37) / F Account: [id number] Location: AMBULATORY SURG Taken: 02/28/2018 Received: 03/01/2018 Reported: 03/02/2018 Physicians: Ted Castillo M.D. Specimen(s) Received GALLBLADDER Clinical History Symptomatic cholelithiasis Final Diagnosis GALLBLADDER, LAPAROSCOPIC CHOLECYSTECTOMY: CHRONIC CHOLECYSTITIS, CHOLESTEROLOSIS, AND CHOLELITHIASIS. Electronically Signed Brie Cooley M.D. Gross Description Received in formalin, labeled "gallbladder," is a 6.5 x 2.5 x 2.2 cm. gallbladder with a 0.2 cm. in length portion of cystic duct attached. The outer surface is sung-pink and varies from smooth to shaggy. The lumen contains green, tenacious bile as well as multiple yellow, irregular to fragmented, bosselated choleliths ranging from 0.1-1.5 cm in greatest dimension. The mucosa is green with gold cholesterol stippling. The wall of the gallbladder averages 0.1 cm. in thickness. Grad[employer] sections are submitted in one cassette. /03/01/2018 saudi03/01/2018
--- NOTE | 2018-03-19 18:24 | OP ---
DATE OF OPERATION: 02/28/2018 PREOPERATIVE DIAGNOSIS: Symptomatic cholelithiasis. POSTOPERATIVE DIAGNOSIS: Symptomatic cholelithiasis. PROCEDURE: Laparoscopic cholecystectomy. SURGEON: Ted Castillo MD PIGMENT PUSHER: Jarred Khan MD ANESTHESIA: General endotracheal. ESTIMATED BLOOD LOSS: 5 mL. FLUIDS: 1200 mL of Crystalloid. SPECIMEN: Gallbladder to Pathology. FINDINGS: Multiple stones in the gallbladder. Mild edema at the liver interface and critical view was identified. DISPOSITION: Stable and extubated to PACU. INDICATIONS FOR PROCEDURE: Patient is a 37-year-old female with a history of reflux and morbid obesity, status post laparoscopic gastric sleeve 5 years ago with a 50 pound weight loss who presented to the emergency room with epigastric pain radiating upwards, across her chest and the neck, beginning the night before. She had similar symptoms in the past, sometimes after greasy foods, but never sought medical attention prior to this. She had subjective chills and nausea associated with it, but only vomited in the emergency room, where she was afebrile with a normal white count and normal labs, except for mildly elevated AST and ALT. An ultrasound showed contracted gallbladder with multiple stones, but no signs of cholecystitis. Initially she was going to be discharged home, but decided that she wanted to stay and have her gallbladder out. Labs were repeated this a.m., which were stable with no suggestion of common bile duct stones or pancreatitis. The risks, benefits, and alternatives of laparoscopic, possible open cholecystectomy were discussed with the patient including, but not limited to bleeding, infection, injury to the adjacent structures, bile leak or ductal injury, intraabdominal abscess, incisional hernia, need for further procedures. Alternatives inclusive of delayed or no surgery with risks of recurrence of biliary colic, cholecystitis, cholangitis, pancreatitis, and sepsis were also discussed. Patient desired to proceed with the operation and signed informed consent for the same. She is brought to the operating room now for this procedure. OPERATIVE TECHNIQUE: The patient was brought to the operating room and laid supine on the operating table. Sequential compression devices were applied to the bilateral lower extremities. Cefoxitin was given as preoperative antibiotic. After induction and intubation by anesthesia, the patient's abdomen was prepped and draped in the sterile fashion. A small supraumbilical midline incision was made with a scalpel and carried through the subcutaneous tissues with electrocautery until the abdominal wall fascia was identified, scored and elevated with Radha clamps. The peritoneum was entered bluntly with the tip of a clamp and a fingertip inserted to ensure entry into the abdominal cavity and the absence of any underlying adhesions. A stay suture of 0 Vicryl was placed in the fascia in a [id number] fashion for later closure and the Asia trocar was introduced directly into the abdominal cavity and secured in place with the balloon. The abdomen was insufflated with carbon dioxide. The patient was placed in the reverse Trendelenburg position. The laparoscope was inserted to inspect the abdominal cavity. The patient's gallbladder was indeed visible at the edge of the liver. Additional 5-mm port was placed in the subxiphoid area under direct vision. Two additional 5-mm ports were placed in the right upper quadrant, also under direct vision. Through one of these, a grasper was introduced and used to grasp the fundus of the gallbladder and elevated over the liver edge. The second grasper was used through the second of these to grasp the infundibulum of the gallbladder and retract it laterally. Susan dissector was then used through the operative port to begin dissecting at the base of the gallbladder to expose the cystic duct and cystic artery. There were multiple stones palpable in the gallbladder. Although initially the gallbladder appeared rather thin-walled, once the cystic structures had been dissected out of the base of the gallbladder and the critical view was identified with the cystic duct being the only structure directly entering the gallbladder, visualized from both medial and lateral sides. The cystic artery was seen just medial and behind this. Clips were placed on the duct and artery; 2 proximally and 1 distally, and each was divided with endoscissors. The hook cautery was used to begin taking the gallbladder off of the liver bed. It was noted that there was some mild edema at the liver interface facilitating an avascular plane, which did dissect. Once the gallbladder had been completely from the liver bed, it was placed in an EndoCatch bag and retrieved out the umbilical port site. There was no significant bleeding and hemostasis was noted to be complete as there was no significant fluid in the area. There was no need for irrigation. Once the gallbladder had been retrieved and the operative site reinspected briefly, the 5-mm ports were removed under direct vision. The camera and Asia trocar were also removed. Again, the abdomen was desufflated of carbon dioxide. The stay suture at the umbilical site was tied to close the fascia there. Hemostasis was achieved in the port sites with electrocautery where needed. The skin was then closed with 4-0 Vicryl subcuticular sutures, including a running at the umbilical site. Benzoin and Steri-Strips were applied over each of the sites and gauze and Tegaderm were placed as dressings over these. Counts were correct at the end of the procedure. The patient was then awakened and extubated by anesthesia, moved back to a stretcher, and taken to the recovery room in stable condition, having tolerated the procedure well. Dr. Khan was an essential dental assistant teacher throughout the procedure, beginning with entry into the abdominal cavity, assisting with retraction and manipulation of the gallbladder throughout the case, retrieval of the gallbladder and closure of the skin sites at the end. Ted Castillo M.D. [id number]
== END 2018-03-01 20:30 | disposition home or self-care (01) ==
LOC: JER 19:30 → UNDOADMOB 02-28 02:38 → JASUSAT 02-28 02:38 → JERBED 02-28 02:38 → UNDOADMOB 02-28 02:58 → J6S 02-28 08:33 → JERBED 02-28 08:33 → JASUSAT 03-01 20:30
PROVIDERS: ATTEND Surgery
PROC: 0FT44ZZ Resection of Gallbladder, Percutaneous Endoscopic Approach (ICD-10-PCS; principal; 2018-02-28 17:00)
DX: K80.80 Other cholelithiasis without obstruction (principal)
CPT/HCPCS: 36415; 76705-TC; 80053; 81003; 82550; 83690; 84484; 84703; 85025; 85027; 85610; 86850; 86900; 86901; 88304-TC; 93005; 93010; 93306-TC; 94010; 94760; 99283-25; J0131; J7030; Q0162

== ENCOUNTER 2019-10-17 23:24 | Emergency (ER) | payer OTHER ==
[2019-10-17] MEDS ORDERED: SODIUM CHLORIDE 500 ML IV STA (23:54)
[2019-10-18 00:03] VITALS: BP 126/70; TEMP 97.9; BMI 28.3
[2019-10-18 00:40] LABS: BASO % 0.2 % (0-2.0); EOS % 0.7 % (0-4.5); HEMATOCRIT 38.5 % (32.4-45.2); HEMOGLOBIN 13.1 GM/dL (10.7-15.3); LYMPH % 18.5 % (8-40); MCH 31.3 pg (25.7-33.7); MCHC 33.9 g/dl (32.0-36.0); MEAN CELL VOLUME 92.5 fl (80-96); MEAN PLT VOLUME 8.6 fl (7.5-11.1); MONO % 5.8 % (3.8-10.2); NEUT % 74.8 % (42.8-82.8); PLATELET COUNT 297 K/MM3 (134-434); RBC 4.17 M/mm3 (3.60-5.2); RDW 12.9 % (11.6-15.6); WHITE BLOOD COUNT 6.4 K/mm3 (4.0-10.0)
[2019-10-18 00:43] LABS: URINE APPEARANCE CLEAR; URINE BILIRUBIN NEGATIVE (NEGATIVE); URINE COLOR YELLOW; URINE GLUCOSE (UA) NEGATIVE (NEGATIVE); URINE KETONE NEGATIVE (NEGATIVE); URINE LEUK ESTERASE NEGATIVE (NEGATIVE); URINE NITRITE NEGATIVE (NEGATIVE); URINE PROTEIN NEGATIVE (NEGATIVE); URINE UROBILINOGEN 0.2 mg/dL (0.2-1.0)
[2019-10-18 00:45] LABS: HCG,QUALITATIVE URINE Negative
[2019-10-18 01:10] LABS: ALBUMIN 4.3 g/dl (3.4-5.0); ALK PHOS 55 U/L (45-117); ANION GAP 10 MMOL/L (8-16); BILIRUBIN,TOTAL 0.5 mg/dL (0.2-1); BLOOD UREA NITROGEN 10.4 mg/dL (7-18); CALCIUM 8.9 mg/dL (8.5-10.1); CHLORIDE 98 mmol/L (98-107); CO2 26 mmol/L (21-32); CREATININE 0.7 mg/dL (0.55-1.3); GLUCOSE,RANDOM 115 mg/dL (74-106); POTASSIUM 3.8 mmol/L (3.5-5.1); SGOT/AST 24 U/L (15-37); SGPT/ALT 21 U/L (13-61); SODIUM 134 mmol/L (136-145); TOT PROT 7.9 g/dl (6.4-8.2)
[2019-10-18 01:54] VITALS: PULSE 85
== END 2019-10-18 01:56 | disposition home or self-care (01) ==
LOC: JER 23:24
PROC: 3E0337Z Introduction of Electrolytic and Water Balance Substance into Peripheral Vein, Percutaneous Approach (ICD-10-PCS; principal; 2019-10-17)
DX: R06.02 Shortness of breath (principal); U07.1 COVID-19
CPT/HCPCS: 36415; 71045-TC-FY; 80053; 81003; 82550; 84484; 84703; 85025; 93005; 93010; 96360; 99285-25

== ENCOUNTER 2019-12-31 19:08 | Emergency (ER) | payer OTHER ==
[2019-12-31 19:27] VITALS: TEMP 98.6; BMI 29.8
--- NOTE | 2019-12-31 19:28 | PDOC ---
Rapid Medical Evaluation Chief Complaint: Chest Pain Time Seen by Provider: 12/31/19 19:27 Medical Evaluation: Allergies Allergy/AdvReac Type Severity Reaction Status Date / Time No Known Allergies Allergy Verified 12/31/19 19:23 Vital Signs Temp Pulse Resp BP Pulse Ox 98.6 F 67 18 115/51 L 99 12/31/19 19:19 12/31/19 19:19 12/31/19 19:19 12/31/19 19:19 12/31/19 19:19 12/31/19 19:28 39 year old female C/O MIDSTERNAL CHEST PAIN x 1 month. patient reports that she had covdi in september. symptoms resolved however chest pain returned. patient reports that chest pain is persistent A: chest pain P; EKG chest xray 12/31/19 19:37 Discharge Disposition - Diagnosis Chest pain at rest - Discharge Dispostion Last Admission D/C Date: 05/16/10 - Referrals Referrals: Kena Pace MD [Primary Care Provider] - - Patient Instructions - Post Discharge Activity
[2019-12-31] MEDS ORDERED: ASPIRIN 81 MG CHEWABLE TABLETS PO ONE (19:43)
[2019-12-31] MEDS ORDERED: ASPIRIN 81 MG CHEWABLE TABLETS ONE (20:04)
[2019-12-31 20:25] LABS: BASO % 0.5 % (0-2.0); EOS % 1.2 % (0-4.5); HEMATOCRIT 38.8 % (32.4-45.2); HEMOGLOBIN 12.9 GM/dL (10.7-15.3); LYMPH % 29.6 % (8-40); MCH 31.4 pg (25.7-33.7); MCHC 33.2 g/dl (32.0-36.0); MEAN CELL VOLUME 94.4 fl (80-96); MEAN PLT VOLUME 7.8 fl (7.5-11.1); MONO % 5.8 % (3.8-10.2); NEUT % 62.9 % (42.8-82.8); PLATELET COUNT 286 K/MM3 (134-434); RDW 13.3 % (11.6-15.6); WHITE BLOOD COUNT 4.8 K/mm3 (4.0-10.0)
[2019-12-31 20:33] LABS: INR 0.94 (0.83-1.09); PROTHROMBIN TIME (PATIENT) 11.1 SEC (9.7-13.0)
[2019-12-31 20:35] LABS: ACTIVATED PTT 27.5 SECONDS (25.2-36.5)
--- NOTE | 2019-12-31 20:46 | PDOC ---
Documentation entered by Jojo Vences SCRIBE, acting as scribe for Viviane Corrigan MD. Viviane Corrigan MD: This documentation has been prepared by the Vangie thompson Brenda, SCRIBE, under my direction and personally reviewed by me in its entirety. I confirm that the documentation accurately reflects all work, treatment, procedures, and medical decision making performed by me. Attending Attestation - Resident Resident Name: Marcell Tate - ED Attending Attestation I have performed the following: I have examined & evaluated the patient, The case was reviewed & discussed with the resident, I agree w/resident's findings & plan, Exceptions are as noted - HPI HPI: 12/31/19 20:19 The patient is a 39 year old female with a significant PMH of COVID+ in September who presents to the ED for evaluation of 1 month of chest pain. She notes that she was COVID+ in September and her symtpoms resolved, however her chest pain returned and is not persistent. She has had problems with her allergies to dust and pollen and has had problems with itchy eyes and persistently runny nose. But no fever or chills Allergies: no known allergies to drugs but does have environmental allergies 12/31/19 21:16 - Physicial Exam PE: 12/31/19 20:38 wnwd 39 yo female p/w chest pain for 3 weeks. She is not short of breath, denies fever,chills ,nausea or vomiting 12/31/19 20:39 wnwd 39 yo female in no acute distress head ncat neck supple, no jvd lungs cta b/l cvs [id number] abdomen no rebound, no guarding skin warm and dry neuro axox3 ,ambulatory - Medical Decision Making 12/31/19 21:20 d dimer<215 negative troponin ekg NSR @ 72 bpm cxr napd normal cbc, no leukocytosis and no anemia 12/31/19 21:22 Discharge - Discharge Information Problems reviewed: Yes Clinical Impression/Diagnosis: Chest pain Qualifiers: Chest pain type: unspecified Qualified Code(s): R07.9 - Chest pain, unspecified Condition: Stable Disposition: HOME - Follow up/Referral Referrals: Kena Pace MD [Primary Care Provider] - - Patient Discharge Instructions Patient Printed Discharge Instructions: Allergic Rhinitis, DI for Atypical Chest Pain Additional Instructions: You came to the ED w/ three weeks of chest pain accompanied by itchy eyes and a runny nose. While here, you had several tests to rule out serious diagnoses, like a heart attack, and a blood clot in your lungs. The test results all came back normal. Please come back to the ED if you experience the pain again as more severe, or if you have chest pain that moves to your back, neck, arms or is accompanied by sweating and or fever. Please followup tomorrow with your primary care doctor. The allergy medicine we discussed is XYZAL - Post Discharge Activity
[2019-12-31 21:07] LABS: ALBUMIN 4.1 g/dl (3.4-5.0); ALK PHOS 69 U/L (45-117); ANION GAP 8 MMOL/L (8-16); BILIRUBIN,TOTAL 0.3 mg/dL (0.2-1); CALCIUM 9.5 mg/dL (8.5-10.1); CHLORIDE 107 mmol/L (98-107); CO2 28 mmol/L (21-32); CREATININE 0.6 mg/dL (0.55-1.3); GLUCOSE,RANDOM 89 mg/dL (74-106); MAGNESIUM 2.3 mg/dL (1.8-2.4); POTASSIUM 3.5 mmol/L (3.5-5.1); SGOT/AST 16 U/L (15-37); SGPT/ALT 23 U/L (13-61); SODIUM 143 mmol/L (136-145); TOT PROT 7.4 g/dl (6.4-8.2)
--- NOTE | 2019-12-31 21:25 | PDOC ---
History of Present Illness - General Chief Complaint: Chest Pain Stated Complaint: CHEST PAIN/SOB Time Seen by Provider: 12/31/19 19:27 - History of Present Illness Initial Comments: 12/31/19 21:25 39yo F w/ h/o COVID-19 in September p/w three weeks of substernal CP along w/ itchy eyes and a runny nose. The pain does not radiate to arms or neck and is not associated w/ sweating, nausea, vomiting, or syncope. It is reproducible w/ palpation and deep breaths. No recent fevers, illness, travel, calf pain, or cough. 12/31/19 21:35 Past History - Medical History Allergies/Adverse Reactions: Allergies Allergy/AdvReac Type Severity Reaction Status Date / Time No Known Allergies Allergy Verified 12/31/19 19:23 Home Medications: Ambulatory Orders Omeprazole 20 mg PO DAILY PRN 02/28/18 Acetaminophen [Tylenol .Regular Strength -] 650 mg PO Q6H tablet 03/01/18 Docusate Sodium [Colace -] 100 mg PO BID PRN capsule 03/01/18 Ibuprofen [Motrin -] 600 mg PO Q6H tablet 03/01/18 Azithromycin [Zithromax 250mg Tablets -] 250 mg PO UTDICT #6 tab 10/29/19 COPD: No DVT: No - Surgical History Cholecystectomy: Yes GI Surgery: Yes (GASTRIC SLEEVE) - Immunization History Immunization Up to Date: Yes - Psycho-Social/Smoking History Smoking History: Never smoked - Substance Abuse Hx (Audit-C & DAST Scrn) How often the patient has a drink containing alcohol: Never Score: In Men: 4 or > Positive; In Women: 3 or > Positive: 0 Screen Result (Pos requires Nsg. Audit-10AR): Negative In the last yr the pt used illegal drug/Rx for NonMed reason: No Score: Yes response is considered Positive: 0 Screen Result (Positive result requires Nsg. DAST-10): Negative *Physical Exam - Vital Signs Last Vital Signs Temp Pulse Resp BP Pulse Ox 98.6 F 67 18 115/51 L 99 12/31/19 19:19 12/31/19 19:19 12/31/19 19:19 12/31/19 19:19 12/31/19 19:19 ED Treatment Course - LABORATORY CBC & Chemistry Diagram: 12/31/19 Unknown 12/31/19 Unknown - ADDITIONAL ORDERS Additional order review: Laboratory Results 12/31/19 12/31/19 12/31/19 Unknown Unknown 20:00 PT with INR 11.10 INR 0.94 PTT (Actin FS) 27.5 D-Dimer < 215 Sodium 143 Potassium 3.5 Chloride 107 Carbon Dioxide 28 Anion Gap 8 BUN 12.0 Creatinine 0.6 Est GFR (CKD-EPI)AfAm 133.07 Est GFR (CKD-EPI)NonAf 114.82 Random Glucose 89 Calcium 9.5 Magnesium 2.3 Total Bilirubin 0.3 AST 16 ALT 23 Alkaline Phosphatase 69 Creatine Kinase 76 Troponin I < 0.02 Total Protein 7.4 Albumin 4.1 12/31/19 Unknown RBC 4.10 MCV 94.4 MCHC 33.2 RDW 13.3 MPV 7.8 Neutrophils % 62.9 Lymphocytes % 29.6 D Monocytes % 5.8 Eosinophils % 1.2 Basophils % 0.5 - Medications Given in the ED: ED Medications Discontinued Medications Generic Name Dose Route Start Last Admin Trade Name Kel PRN Reason Stop Dose Admin Aspirin 162 mg 12/31/19 19:43 12/31/19 20:12 Asa - PO 12/31/19 19:44 162 mg ONCE ONE Administration Discharge - Discharge Information Problems reviewed: Yes Clinical Impression/Diagnosis: Chest pain Qualifiers: Chest pain type: unspecified Qualified Code(s): R07.9 - Chest pain, unspecified Clinical Impression/Diagnosis: (Ruled Out): Reactive airway disease, Chest pain at rest Condition: Stable Disposition: HOME - Admission No - Follow up/Referral Referrals: Kena Pace MD [Primary Care Provider] - - Patient Discharge Instructions Patient Printed Discharge Instructions: Allergic Rhinitis, DI for Atypical Chest Pain Additional Instructions: You came to the ED w/ three weeks of chest pain accompanied by itchy eyes and a runny nose. While here, you had several tests to rule out serious diagnoses, like a heart attack, and a blood clot in your lungs. The test results all came back normal. Please come back to the ED if you experience the pain again as more severe, or if you have chest pain that moves to your back, neck, arms or is accompanied by sweating and or fever. Please followup tomorrow with your primary care doctor. The allergy medicine we discussed is XYZAL - Post Discharge Activity
[2019-12-31 21:47] VITALS: BP 111/68; PULSE 65
--- NOTE | 2020-01-01 10:41 | EKG ---
Test Reason : Blood Pressure : / mmHG Vent. Rate : 072 BPM Atrial Rate : 072 BPM P-R Int : 144 ms QRS Dur : 076 ms QT Int : 396 ms P-R-T Axes : 055 020 016 degrees QTc Int : 433 ms NORMAL SINUS RHYTHM NORMAL ECG WHEN COMPARED WITH ECG OF 18-OCT-2019 00:54, QUESTIONABLE CHANGE IN QRS AXIS Confirmed by MD Royal Daniel ([id number]) on 01/01/2020 10:40:52 AM Referred By: Confirmed By:Marcell Royal MD
== END 2019-12-31 21:51 | disposition home or self-care (01) ==
LOC: JER 19:08
DX: R07.9 Chest pain, unspecified (principal)
CPT/HCPCS: 36415; 71046-TC-FY; 80053; 82550; 83735; 84484; 85025; 85379; 85610; 85730; 93005; 93010; 99285-25